=== PATIENT | female | born 1975 | race Caucasian/White ===

== ENCOUNTER 2016-10-10 12:47 | Emergency (ER) | payer BC ==
--- NOTE | 2016-10-10 14:10 | UC ---
Dizzy HPI HPI Summary: PT HAD GASTRIC SLEEVE 11/2015. IS LIMITED TO HOW MUCH FLUID SHE CAN TAKE IN. STARTED TO FEEL DEHYDRATED A COUPLE OF WEEKS AGO BUT TODAY FELT WORSE. STATES SHE "COULD NOT FUNCTION". FELT WEAK, DIZZY AND UNABLE TO FOCUS. HAS HEADACHE. HAD SIMILAR SX A COUPLE OF MONTHS AGO AND FELT BETTER AFTER IVF. - History Of Current Complaint Chief Complaint: UCDizziness Stated Complaint: NEEDS FLUIDS Time Seen by Provider: 10/10/16 13:14 Hx Obtained From: Patient Hx Last Menstrual Period: 10/10/16 Onset/Duration: Gradual Onset, Still Present Timing: Constant Severity Initially: Mild Severity Currently: Moderate Pain Intensity: 0 Pain Scale Used: 0-10 Numeric Character: Weak, Dizzy Aggravating Factor(s): Exertion Associated Signs And Symptoms: Positive: Decreased Oral Intake. Negative: Nausea, Vomiting, SOB, Palpitations, Visual Changes - Allergies/Home Medications Allergies/Adverse Reactions: Allergies Allergy/AdvReac Type Severity Reaction Status Date / Time Iodinated Contrast Media Allergy Intermediate Hives Verified 10/10/16 13:17 [CONTRAST DYE] Sulfa Drugs Allergy Intermediate Hives Verified 10/10/16 13:17 ENVIRONMENTAL/SEASONAL Allergy Hives Uncoded 10/10/16 13:17 HAYFEVER PMH/Surg Hx/FS Hx/Imm Hx Endocrine History Of: Denies: Diabetes Cardiovascular History Of: Reports: Hypertension - PRN TRIAMTERENE/HCTZ Denies: Pacemaker/ICD Respiratory History Of: Reports: Asthma, Bronchitis - AND SINUS INFECTION IN THE LAST MONTH GI/ History Of: Reports: Kidney Stones - HX OF Denies: Renal Disease Comment Only: Gall Bladder Disease - Gall Bladder removed Neurological History Of: Reports: Migraine Denies: CVA Psychological History Of: Reports: Anxiety, Depression - Surgical History Surgical History: Yes Surgery Procedure, Year, and Place: LEFT WRIST PINS{PINS REMOVED} 1997 AND 2013 -. Lt WRIST cyst X's 2 - BONE SPURS REMOVED LAPAROSCOPY 1998. TENDON RELEASE RIGHT WRIST 2000, 2012. GALLBLADDER REMOVED 2001. Tubal ligation. TONSILS 2006. LEFT KNEE ARTHROSCOPIC 2003. 2007. TUBAL LIGATION 2009. 2012 -LEFT SHOULDER LABRAL REPAIR. 2010- LEFT RING FINGER- APONTE LAPAROSCOPY X 2 MOST RECENT YEARS AGO- [place]. CYSTS REMOVED NECK,R WRIST,GROIN. 3 HEMORROID SURGERIES. 03/2014 LEFT WRIST MASS EXC [facility]. 2010 CYST REMOVED FROM RIGHT JAW AREA. 1998-LAPAROSCOPY. 2000-RIGHT TENDONITIS. 2000 HEMORRHOID BANDING. 2000-CAUTERIZATION OF HEMORRGOIDS. 2000-GALLBLADDER. 2003-LEFT KNEE SCOPING. AFTER 2004 3 MORE LAPAROSCOPIES- WITH TUBAL LIGATION. 2007-C- SECTION. 2008-LEFT RING FINGER REPAIR OF FRACTURE. 2007--TONSILLECTOMY. 2007- HEMORRHOID CUT OUT. 2012-LABRUM TEAR LEFT SHOULDER. 2013-LEFT WRIST BONE SPURS. 2013-BRONCHOSCOPY. SURGERY FOR KIDNEY STONE BLASTING - Family History Known Family History: Positive: Cardiac Disease, Hypertension Family History: Father has heart disease and mother has hypertension - Social History Alcohol Use: Rare Substance Use Type: None Smoking Status (MU): Never Smoked Tobacco Type: Cigarettes Amount Used/How Often: 1/2-1 PPD X 21 YEARS Length of Time of Smoking/Using Tobacco: 21 YEARS Have You Smoked in the Last Year: No When Did the Patient Quit Smoking/Using Tobacco: 03/2014 Household Exposure Type: Cigarettes - Immunization History Most Recent Influenza Vaccination: never Most Recent Tetanus Shot: [place] Most Recent Pneumonia Vaccination: never Review of Systems Constitutional: Fatigue Skin: Negative Respiratory: Negative Cardiovascular: Negative Gastrointestinal: Negative Neurological: Headache, Weakness, Other - DIZZY All Other Systems Reviewed And Are Negative: Yes Physical Exam Triage Information Reviewed: Yes Appearance: Well-Appearing, No Pain Distress, Well-Nourished Vital Signs: Initial Vital Signs Temp 98.1 F 10/10/16 13:31 Pulse 65 10/10/16 13:31 Resp 16 10/10/16 13:31 BP 132/84 10/10/16 13:31 Pulse Ox 98 10/10/16 13:31 Vital Signs Reviewed: Yes Eyes: Positive: Conjunctiva Clear ENT: Positive: Hearing grossly normal Neck: Positive: Supple Respiratory Exam: Normal Cardiovascular Exam: Normal Abdomen Description: Positive: Nontender, Soft. Negative: Distended, Guarding Bowel Sounds: Positive: Present Musculoskeletal: Positive: No Edema Neurological: Positive: Fatigued Psychological: Positive: Normal Response To Family, Age Appropriate Behavior Skin: Negative: rashes Dizzy Course/Dx - Course Course Of Treatment: NS ORDERED. PT SIGNED OUT TO DR. WAITE AT SHIFT CHANGE. - Differential Dx/Diagnosis Provider Diagnoses: DIZZY - Physician Notifications Discussed Patient Care With: DR. WAITE Time Discussed With Above Provider: 14:39 - TRANSFER OF CARE - SHIFT CHANGE Discharge - Discharge Plan Condition: Stable Disposition: OTHER Discharge Disposition Comment: TRANSFER OF CARE - SHIFT CHANGE Referrals: Dayo Westbrook MD [Primary Care Provider] - If Needed
[2016-10-10] MEDS ORDERED: NS 0.9% 1000 ML* 1,000 ML IV SCH (14:15)
--- NOTE | 2016-10-10 15:30 | UC ---
Progress - Progress Note Progress Note: The patient came in "for fluids" because she was "dehydrated." She states this diagnosis because she felt like she was going to faint. And the last time she felt this way, she had IV fluids and felt much better. That is why she thought that is all that she needed today and why she came in stating she was here for "fluids." She has had bariatric surgery recently. However, her urine specific gravity was 1.005 and she has been urinating all the time that she is here. When I went in to see her after Dr. Mcintyre left, she stated that she felt a bit better, but not at all as well as she did the first time she had fluids. The patient was told that if she is having near syncopal episodes, that she should probably go to the ER for further evaluation as we don't have the testing here ( other than EKG) that can help figure out why she is having these symptoms. AT the time I had told her that her urine suggested that she was not dehydrated, she said she did not know what to do. So I told her that I will let her think about it for a while and come back see what she wants to do. After the patient had some time to think about this (and call her primary care provider--Dr. Roth), the nurse pulled her IV and got vital signs showing that her initial heart rate of 65 dropped to 48). She was told that we can do an EKG and she agreed to this. The patient had an EKG done which shows that her pulse rate is 41. The patient was told about this and my strong recommendation that she have this slow heart rate and feeling like she is going to faint evaluated in the ER. She is agreeable to go by ambulance. Poornima Harley was told about this patient at 16:10.
[2016-10-10 16:18] VITALS: BP 138/78
[2016-10-10] MEDS ORDERED: D5NS 0.9% 1000 ML BAG* 1,000 ML IV SCH (17:00)
== END 2016-10-10 16:35 ==
LOC: UCEAST 12:47
DX: R42 Dizziness and giddiness (principal); R55 Syncope and collapse; R00.1 Bradycardia, unspecified; Z32.02 Encounter for pregnancy test, result negative; I10 Essential (primary) hypertension; Z91.041 Radiographic dye allergy status; Z90.49 Acquired absence of other specified parts of digestive tract; Z98.84 Bariatric surgery status; Z88.2 Allergy status to sulfonamides; Z87.891 Personal history of nicotine dependence
CPT/HCPCS: 81003; 84702; 93005; 96360; 96361; 99213; G0463

== ENCOUNTER 2016-10-10 16:58 | Emergency (ER) | payer BC ==
[2016-10-10] MEDS ORDERED: NS 0.9% 1000 ML* 1,000 ML IV ONE (18:24)
[2016-10-10 18:44] LABS: Hematocrit 38 % (35-47); Hemoglobin 12.6 g/dl (12.0-16.0); Mean Corpuscular HGB Conc 34 g/dl (31-36); Mean Corpuscular Hemoglobin 29 pg (27-31); Mean Corpuscular Volume 85 fL (80-97); Mean Platelet Volume 8 um3 (7.4-10.4); Red Blood Count 4.43 10^6/ul (4.0-5.4); Red Cell Distribution Width 13 % (10.5-15); White Blood Count 5.4 10^3/ul (3.5-10.8)
[2016-10-10 18:59] LABS: Albumin 4.1 g/dL (3.2-5.2); BUN/Creatinine Ratio 13.2 (8-20); Calcium 8.7 mg/dL (8.6-10.3); EGFR African American 123.9 (>60); EGFR Non-African American 96.3 (>60); Globulin 2.8 g/dL (2-4); Potassium 3.5 mmol/L (3.5-5.0); Total Bilirubin 0.4 mg/dL (0.2-1.0); Total Protein 6.9 g/dL (6.4-8.9)
--- NOTE | 2016-10-10 19:00 | RAD ---
Indication: Syncope. Single frontal view of the chest performed at 1855 hours was reviewed. Comparison is made with previous exam dated April 12, 2014. No mediastinal shift is noted. Heart is of normal size and configuration. Lung ortez appear clear. IMPRESSION: NO ACTIVE CARDIOPULMONARY DISEASE IS NOTED.
[2016-10-10 19:38] LABS: TSH (Thyroid Stimulating Horm) 1.32 mcIU/mL (0.34-5.60)
[2016-10-10 21:32] VITALS: BP 129/83
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
== END 2016-10-10 21:51 | disposition home or self-care (01) ==
LOC: ED 16:58
DX: E86.0 Dehydration (principal); R55 Syncope and collapse; R42 Dizziness and giddiness; R07.9 Chest pain, unspecified
CPT/HCPCS: 36415; 71010; 80053; 83605; 83735; 84443; 84484; 85025; 85379; 85610; 93005; 99282

== ENCOUNTER → 2017-05-01 13:46 | Emergency (ER) | payer BC ==
[~2017-05-01 13:46] MED LIST: HYDROmorphone INJ* 2 MG/ML CARPUJECT SYRINGE IV SLOW PU ONE; Ketorolac INJ* 30 MG/ML 1 ML VIAL IV PUSH ONE; Morphine INJ* 4 MG/ML 1 ML CARPUJECT IV ONE; NS 0.9% 1000 ML* 1,000 ML IV ONE
[2017-05-01 15:24] LABS: Urine Bilirubin Negative (Negative); Urine Glucose Negative (Negative); Urine Nitrite Negative (Negative)
[2017-05-01 15:38] LABS: Hematocrit 36 % (35-47); Hemoglobin 12.3 g/dl (12.0-16.0); Mean Corpuscular HGB Conc 34 g/dl (31-36); Mean Corpuscular Hemoglobin 29 pg (27-31); Mean Corpuscular Volume 85 fL (80-97); Mean Platelet Volume 7 um3 (7.4-10.4); Red Blood Count 4.23 10^6/ul (4.0-5.4); Red Cell Distribution Width 13 % (10.5-15); White Blood Count 6.3 10^3/ul (3.5-10.8)
--- NOTE | 2017-05-01 15:59 | RAD ---
CLINICAL HISTORY: Right flank pain COMPARISON: April 20, 2011 TECHNIQUE: Multiple contiguous axial CT scans were obtained of the abdomen and pelvis, without intravenous contrast enhancement. Coronal and sagittal multiplanar reformations are submitted for review. Oral contrast was not administered. FINDINGS: The study is limited by the lack of intravenous contrast. This limits evaluation of the solid organs and vasculature. LUNG BASES: The lung bases are clear. LIVER: The liver is normal in shape, size, contour, and attenuation. BILE DUCTS: There is no intrahepatic or extrahepatic biliary dilatation. GALLBLADDER: The gallbladder is not visualized. Surgical clips are noted in the gallbladder fossa. PANCREAS: The pancreas is normal, without mass or ductal dilatation. SPLEEN: Normal in size and appearance. UPPER GI TRACT: Evaluation of the gastrointestinal tract is limited by incomplete gastric distention. There is post surgical change to the upper GI tract. SMALL BOWEL AND MESENTERY: The small bowel is normal in contour, course, and caliber. There is no obstruction or dilatation. COLON: The colon is normal in contour, course, caliber. There is no pericolonic inflammatory change. The appendix is not clearly visualized. There is no inflammatory change of the right lower quadrant. ADRENALS: Normal bilaterally. KIDNEYS: The kidneys are normal in shape, size, contour, and axis. There is no hydronephrosis or nephrolithiasis. BLADDER: The bladder is incompletely distended but is grossly normal. PELVIC ORGANS: The uterus is somewhat lobulated suggestive of fibroids. The patient is status post tubal ligation. A tampon is noted. AORTA: The aorta is normal. IVC: Unremarkable LYMPH NODES: There is no lymphadenopathy by size criteria. ABDOMINAL WALL: There is no evidence for abdominal wall hernia. BONES AND SOFT TISSUES: Mild degenerative changes are noted. OTHER: None IMPRESSION: NO HYDRONEPHROSIS OR NEPHROLITHIASIS. NO ACUTE CT PATHOLOGY OF THE VISUALIZED ABDOMEN OR PELVIS.
[2017-05-01 16:05] LABS: ALT 10 U/L (7-52); AST 16 U/L (13-39); Albumin 4.1 g/dL (3.2-5.2); Alkaline Phosphatase 60 U/L (34-104); Anion Gap 7 mmol/L (2-11); BUN/Creatinine Ratio 18.8 (8-20); Blood Urea Nitrogen 13 mg/dL (6-24); CO2 Carbon Dioxide 26 mmol/L (22-32); Calcium 9.3 mg/dL (8.6-10.3); Chloride 103 mmol/L (101-111); EGFR African American 121.2 (>60); EGFR Non-African American 94.2 (>60); Globulin 2.8 g/dL (2-4); Glucose 83 mg/dL (70-100); Lipase 32 U/L (11.0-82.0); Potassium 3.9 mmol/L (3.5-5.0); Sodium 136 mmol/L (133-145); Total Protein 6.9 g/dL (6.4-8.9)
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
[2017-05-01 17:56] VITALS: BP 127/83
== END | disposition home or self-care (01) ==
LOC: ED 13:46
DX: R10.31 Right lower quadrant pain (principal); Z87.891 Personal history of nicotine dependence; I10 Essential (primary) hypertension; J45.909 Unspecified asthma, uncomplicated; Z87.442 Personal history of urinary calculi
CPT/HCPCS: 36415; 74176; 80053; 81003; 83690; 84702; 85025; 85610; 85730; 96360; 99282; J1170; J1885; J2270

== ENCOUNTER 2017-06-16 22:29 | Emergency (ER) | payer BC ==
[2017-06-16] MEDS ORDERED: NS 0.9% 1000 ML* 1,000 ML IV SCH (23:45)
[2017-06-16] MEDS ORDERED: Ketorolac INJ* 30 MG/ML 1 ML VIAL IV PUSH ONE (23:50)
[2017-06-17 00:34] LABS: Hematocrit 37 % (35-47); Hemoglobin 12.7 g/dl (12.0-16.0); Mean Corpuscular HGB Conc 35 g/dl (31-36); Mean Corpuscular Hemoglobin 30 pg (27-31); Mean Corpuscular Volume 85 fL (80-97); Mean Platelet Volume 7 um3 (7.4-10.4); Red Blood Count 4.28 10^6/ul (4.0-5.4); Red Cell Distribution Width 13 % (10.5-15); White Blood Count 7.5 10^3/ul (3.5-10.8)
[2017-06-17 00:41] LABS: Urine Bacteria Absent (Absent); Urine Bilirubin Negative (Negative); Urine Glucose Negative (Negative); Urine Nitrite Negative (Negative)
[2017-06-17 00:47] LABS: ALT 10 U/L (7-52); AST 16 U/L (13-39); Albumin 4.4 g/dL (3.2-5.2); Alkaline Phosphatase 61 U/L (34-104); Anion Gap 6 mmol/L (2-11); BUN/Creatinine Ratio 20.3 (8-20); Blood Urea Nitrogen 15 mg/dL (6-24); CO2 Carbon Dioxide 26 mmol/L (22-32); Calcium 9.3 mg/dL (8.6-10.3); Chloride 105 mmol/L (101-111); EGFR African American 111.8 (>60); EGFR Non-African American 86.9 (>60); Globulin 2.9 g/dL (2-4); Glucose 86 mg/dL (70-100); Lipase 43 U/L (11.0-82.0); Potassium 3.6 mmol/L (3.5-5.0); Sodium 137 mmol/L (133-145); Total Protein 7.3 g/dL (6.4-8.9)
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
[2017-06-17 03:13] VITALS: BP 99/58
--- NOTE | 2017-06-17 07:59 | RAD ---
CLINICAL HISTORY: Right flank tenderness, renal colic COMPARISON: May 01, 2017 TECHNIQUE: Multiple contiguous axial CT scans were obtained of the abdomen and pelvis, without intravenous contrast enhancement. Coronal and sagittal multiplanar reformations are submitted for review. Oral contrast was not administered. FINDINGS: The study is limited by the lack of intravenous contrast. This limits evaluation of the solid organs and vasculature. LUNG BASES: The lung bases are clear. LIVER: The liver is normal in shape, size, contour, and attenuation. BILE DUCTS: There is no intrahepatic or extrahepatic biliary dilatation. GALLBLADDER: The gallbladder is not visualized. Surgical clips are noted in the gallbladder fossa. PANCREAS: The pancreas is normal, without mass or ductal dilatation. SPLEEN: Normal in size and appearance. UPPER GI TRACT: Evaluation of the gastrointestinal tract is limited by incomplete gastric distention. There is post surgical change to the projected tract. SMALL BOWEL AND MESENTERY: The small bowel is normal in contour, course, and caliber. There is no obstruction or dilatation. COLON: The colon is normal in contour, course, caliber. There is no pericolonic inflammatory change. ADRENALS: Normal bilaterally. KIDNEYS: The kidneys are normal in shape, size, contour, and axis. There is no hydronephrosis or nephrolithiasis. BLADDER: The bladder is smooth in contour. PELVIC ORGANS: The uterus and adnexa are grossly normal for technique. The patient is status post tubal ligation. AORTA: The aorta is normal. IVC: Unremarkable LYMPH NODES: There is no lymphadenopathy by size criteria. ABDOMINAL WALL: There is no evidence for abdominal wall hernia. BONES AND SOFT TISSUES: There are minimal degenerative changes. OTHER: None IMPRESSION: NO HYDRONEPHROSIS OR NEPHROLITHIASIS.
== END 2017-06-17 03:11 | disposition home or self-care (01) ==
LOC: ED 22:29
DX: R10.31 Right lower quadrant pain (principal); R11.10 Vomiting, unspecified; N80.9 Endometriosis, unspecified; Z32.02 Encounter for pregnancy test, result negative; I10 Essential (primary) hypertension; J45.909 Unspecified asthma, uncomplicated; K21.9 Gastro-esophageal reflux disease without esophagitis; Z87.442 Personal history of urinary calculi; G43.909 Migraine, unspecified, not intractable, without status migrainosus; F41.9 Anxiety disorder, unspecified; F32.9 Major depressive disorder, single episode, unspecified; Z90.49 Acquired absence of other specified parts of digestive tract; Z88.2 Allergy status to sulfonamides; Z91.041 Radiographic dye allergy status; Z87.891 Personal history of nicotine dependence
CPT/HCPCS: 36415; 74176; 80053; 81003; 81015; 83605; 83690; 84702; 85025; 85610; 85730; 96361; 96374; 99282; J1885

== ENCOUNTER 2017-08-01 11:37 | Emergency (ER) | payer BC ==
--- OUTSIDE RECORDS SUMMARY | 2017-08-01 11:43 | XMS REPORT ---
:1975 External Reference #:[id number] Author Organization [facility] Address [address] [place] [address] Phone [phone] Care Team Providers Name Role Phone Dayo Westbrook M.D. Primary Care Physician Unavailable Payers Type Date Identification Numbers Payment Provider Subscriber Commercial Effective: Policy Number: [employer] CHERELLE/GUERA Tabatha Acosta 2006 [id number] [facility] PayID: [id number] [address] [address] [place] [address] Problems Description No Information Family History Date Family Member(s) Problem(s) Comments Father Hypertension Mother Colitis Mother Osteoarthritis Mother Hypertension First Daughter A&W Second Daughter A&W Paternal Grandfather due to Unknown Causes () Paternal Grandmother due to Unknown Causes () Maternal Grandfather due to Unknown Causes () Maternal Grandmother Skin Cancer Maternal Grandmother Stroke Social History Type Date Description Comments Education Highest level completed, 12th grade Marital Status Lives With Lives With Daughters Diet Healthy, Well Balanced 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 Cigarette Use Former Cigarette Smoker ETOH Use Occasionally consumes alcohol Recreational Drug Use Denies Drug Use Smoking Patient is a former smoker Daily Caffeine Consumes on average 2 cups of coffee per day Daily Caffeine Consumes on average 2 cups of tea per day Exercise Type/Frequency Exercises sporadically Seat Belt/Car Seat Always uses seat belt Currently Active Patient is currently sexually active Contraceptive Methods Current methods include tubal ligation Contraceptive Methods Current methods include vasectomy STD's No STD History Allergies, Adverse Reactions, Alerts Date Description Reaction Status Severity Comments 11/07/2015 Sulfa Antibiotics active 11/07/2015 Contrast Dye active Medications Medication Date Status Form Strength Qnty SIG Indications Ordering Provider Norethindrone 06/09 Active Tablets 5mg 30tab take 1 tab by Phaelon Acetate s mouth every MD Jayshree day while taking lupron Lupron Depot 05/08 Active Kit 3.75mg 1unit inject 3.75mg Phaelon (1-Month) /2016 s intramuscular MD Jayshree once per month for three months Dulera 12/13 Active Aerosol 200-5mcg/ 1 puff twice Miguelina Act a day prn Dlaila Xyzal 12/13 Active Tablets 5mg 90tab 1 by mouth Miguelina, s every day Dalila Nasonex 12/13 Active Suspension 50mcg/Act 3unit 2 sprays in s each nostril Dalila daily Sertraline HCL 12/11 Active Tablets 25mg 270ta Take 3 bs Tablets Once Dayo, Daily Along M.D. With A 100 MG Tablet Ventolin HFA Active Aerosol 108(90Bas 1unit 2 puffs every Unknown /0000 e) s 4 hours as mcg/Act needed Sertraline HCL Active Tablets 100mg 90tab Take 1 Tablet Dar, s Once Daily Dayo, Along With 3 M.D. 25 MG Tablets Vitamin D3 Active Capsules 21631Amqp 8caps 1 by mouth Unknown /0000 every week x 8 weeks Metoprolol Active Unknown Succinate / Doxycycline 05/08 Hx Capsules 100mg 28cap take one tab Phaelon Hyclate s by mouth MD Jayshree - twice a day x 06/10 14 Dyazide 09/15 Hx Capsules 37.5-25mg 30cap 1 by mouth V41.1 Dar, s every day Dayo, - M.D. 05/06 Medications Administered in Office Medication Date Status Form Strength Qnty SIG Indications Ordering Provider PT SCRN Tbco Administered Injection Phaelon Id as Non User 018 MD Jayshree Vital Signs Date Vital Result Comment 07/29/2017 BP Systolic 118 mmHg BP Diastolic 78 mmHg Height 66.5 inches 5'6.50" Weight 222.00 lb BMI (Body Mass Index) 35.3 kg/m2 Last Menstrual Period 9399810 2 Parity 2 06/17/2017 BP Systolic 106 mmHg BP Diastolic 72 mmHg Height 66.5 inches 5'6.50" Weight 221.00 lb BMI (Body Mass Index) 35.1 kg/m2 Last Menstrual Period 0850869 2 Parity 2 05/08/2017 BP Systolic 116 mmHg BP Diastolic 72 mmHg Height 66.5 inches 5'6.50" Weight 218.00 lb BMI (Body Mass Index) 34.7 kg/m2 Last Menstrual Period 9730510 2 Parity 2 05/06/2017 BP Systolic 130 mmHg BP Diastolic 80 mmHg Height 66.5 inches 5'6.50" Weight 218.00 lb BMI (Body Mass Index) 34.7 kg/m2 Last Menstrual Period 9168280 2 Parity 2 11/07/2015 BP Systolic 134 mmHg BP Diastolic 66 mmHg Height 66.5 inches 5'6.50" Weight 251.00 lb BMI (Body Mass Index) 39.9 kg/m2 Last Menstrual Period 9222606 2 Parity 2 09/27/2015 BP Systolic 130 mmHg BP Diastolic 80 mmHg Body Temperature 97.6 F Heart Rate 62 /min Respiratory Rate 20 /min Height 66 inches Weight 254.00 lb BMI (Body Mass Index) 41.0 kg/m2 09/13/2015 BP Systolic 120 mmHg BP Diastolic 68 mmHg Body Temperature 98.6 F Heart Rate 76 /min Respiratory Rate 16 /min Height 66 inches Weight 256.00 lb BMI (Body Mass Index) 41.3 kg/m2 Results Test Date Test Result H/L Range Note Laboratory test 06/17/2017 Cytology SEE RESULT BELOW 1 finding Laboratory test 11/07/2015 Cytology SEE RESULT BELOW 2 finding GC/Chlamydia Dna 11/07/2015 Chlamydia Negative Negative Probe trachomatis Rna Neisseria gonorrhoeae (GC) Rna Negative Negative Laboratory test finding 11/07/2015 Human Papilloma Virus Rna Negative Negative 3 Laboratory test finding 05/14/2015 Hematocrit 41 % 35-47 Hemoglobin 14.1 g/dL 12.0-16.0 Mean Corpuscular HGB Conc 35 g/dL 31-36 Mean Corpuscular Hemoglobin 31 pg 27-31 Mean Corpuscular Volume 88 fL 80-97 Mean Platelet Volume 7 um3 Low 7.4-10.4 Monospot Negative Negative Platelet Count 292 10^3/uL 150-450 Red Blood Count 4.64 10^6/uL 4.0-5.4 Red Cell Distribution Width 13 % 10.5-15 White Blood Count 8.8 10^3/uL 4.8-10.8 Laboratory test finding 12/28/2014 Inr/Protime 2.16 High 0.78-1.07 Factor II (Prothrombin) 12/28/2014 Prothrombin 12760 Negative Negative 4 Genoty Mutation Prothrombin A76325t Interp See Comment 5 Prothrombin Mutation Review By Cherrie Dupont <See Note> Laboratory test finding 12/24/2014 Inr (Fma) 1.8 Low 2.0-3.0 Laboratory test finding 12/13/2014 Hematocrit (Fma/CMC/CTX) 40.1 % 36.1 - 50.3 Hemoglobin (Fma/CMC/CTX) 13.9 g/dL 12.1 - 17.2 Inr (Fma) 0.9 0.9-1.1 Lymph% 29.9 % 17.0-48.0 Mean Corpuscular Hemo Concen 34.7 32.0-36.0 Mean Corpuscular Hemoglobin 30.5 27.6-33.3 Mean Corpuscular Vol 88 82.2-97.4 Mean Platelet Volume 6.0 5.5-11.0 Mixed% 4.0 Neutrophils % 66.1 Platelets 311 10^3/ul 150-400 RBC 4.57 3.90-5.70 RDW 13.1 11.6-13.7 WBC 6.0 3.6-9.6 1 SEE RESULT BELOW Name: TABATHA ACOSTA : [address]: Nura Martell MD Acct: [id number] Unit: [id number] AGE: 42 Location: [facility] Re06/17/17 SEX: F Status: REG REF SPEC: [id number] MIGUEL: 06/17/17-1556 [facility] DR: Nura Martell MD REQ: [id number] RECD: 06/18/17 STATUS: SOUT _ ORDERED: TP IMAGE ANAL, HPV/Thin Prep COMMENTS: [id number] Negative for Intraepithelial lesion or Malignancy A. Ectocervical/Endocervical Specimen Adequacy: Satisfactory of evaluation Transformation zone component identified Patient Information: HPV: High risk HPV RNA testing regardless of pap results. Actual Specimen Date: 06/17/17 Last Menstrual Date: 05/31/17 Date of Last Specimen: 11/07/15 Date Time Test Result Flag (u) Normal Range 06/17/17 9199 @ HPV RNA Negative Negative @ @ The high-risk HPV types detected by the assay include: 16, @ 18, 31, 33, 35, 39, 45, 51, 52, 56, 58, 59, 66, and 68. Signed (signature on file) MARCIANO Ball(ASCP) 06/19 4050 This Pap test was evaluated with the assistance of the At[employer] SystemsPrep Test Imaging System. Due to cytologic findings at the supervisor electronics processing microscope, comprehensive manual rescreening by a Closing Specialist may be required. The Pap Smear is a screening test designed to aid in the detection of premalignant and malignant conditions of the uterine cervix. It is not a diagnostic procedure and should not be used as the sole means of detecting cervical cancer. Both false- positive and false- negative reports do occur. Depending on your risk status, a Pap smear should be obtained and evaluated every 1-3 years. END OF REPORT * ML=Testing performed at [facility] DEPARTMENT OF PATHOLOGY, [address] [place] [address] Hector Correa M.D. Director [facility] # [id number] 2 SEE RESULT BELOW Name: TABATHA ACOSTA : [address]: Myrna Gore MD Acct: [id number] Unit: [id number] AGE: 40 Location: [facility] Re11/07/15 SEX: F Status: REG REF SPEC: [id number] MIGUEL: 11/07/15-1433 [facility] DR: Myrna Gore MD REQ: [id number] RECD: 11/07/15 STATUS: SOUT _ ORDERED: IMAGE ANALYSIS, HPV/Thin Prep COMMENTS: [id number] FINAL DIAGNOSIS Negative for Intraepithelial lesion or Malignancy A. Ectocervical/Endocervical Specimen Adequacy: Satisfactory of evaluation Transformation zone component identified Patient Information: HPV: High risk HPV RNA testing regardless of pap results. Actual Specimen Date: 11/07/15 Last Menstrual Date: 10/10/15 Spec Date if unknown: elsewhere Date Time Test Result Flag (u) Normal Range 11/07/15 1433 HPV RNA Negative Negative The high-risk HPV types detected by the assay include: 16, 18, 31, 33, 35, 39, 45, 51, 52, 56, 58, 59, 66, and 68. Signed (signature on file) MARCIANO Potter (ASCP) 11/07 1979 This Pap test was evaluated with the assistance of the ThinPrep Test Imaging System. Due to cytologic findings at the supervisor electronics processing microscope, comprehensive manual rescreening by a Closing Specialist may be required. The Pap Smear is a screening test designed to aid in the detection of premalignant and malignant conditions of the uterine cervix. It is not a diagnostic procedure and should not be used as the sole means of detecting cervical cancer. Both false- positive and false- negative reports do occur. Depending on your risk status, a Pap smear should be obtained and evaluated every 1-3 years. END OF REPORT * ML=Testing performed at [facility] DEPARTMENT OF PATHOLOGY, [address] [place] [address] Hector Correa M.D. Director [facility] # [id number] 3 The high-risk HPV types detected by the assay include: 16, 18, 31, 33, 35, 39, 45, 51, 52, 56, 58, 59, 66, and 68. 4 This individual DOES NOT have the Prothrombin U07790P mutation. Although the Prothrombin K04525P mutation is absent, the individual may have other genetic and environmental risk factors for thrombosis. If clinically indicated, suggest Coagulation Consultation 52930 (Thrombophilia Profile) to complete the evaluation for an inherited or acquired thrombosing disorder (i.e., thrombophilia). Consider genetic consultation and counseling of potentially affected family members regarding laboratory testing. ADDITIONAL INFORMATION This test is a direct mutation analysis using PCR amplification, signal generation and release by cleavage of sequence specific alleles ([employer], [employer], [place], [place]). 5 Ivan Collazo M.D. Test Performed by: [address] [address] Contour Grinder: Jayy G. Morice, II, M.D., Ph.D. Procedures Date CPT Code Description Status 07/12/2017 30507 Injection Intramuscular Or Subcutaneous Completed 06/07/2017 98045 Injection Intramuscular Or Subcutaneous Completed 05/07/2017 28143 Echography Transvaginal Completed 11/07/2015 19930 Echography Transvaginal Completed 07/01/2012 Mammogram Completed 07/01/2009 Colonoscopy Completed 04/13/2008 45912 Delivery Only Completed Encounters Type Date Location Provider CPT E/M Dx Office Visit 07/29/2017 3:00p [place] [address] I95.0 R10.30 Office Visit 06/17/2017 3:00p [place] [address] Z01.419 N80.9 Office Visit 05/08/2017 3:00p [place] [address] N92.0 Office Visit 05/06/2017 3:00p [facility] [place] DoC 81895 R10.30 Office Visit 11/07/2015 1:30p [place] [address] N92.0 Plan of Care 05/06/2017 - FIGUEROA Do-CR10.30 Lower abdominal pain, unspecifiedFollow up :r/v u/s and visit, first available apt.
--- NOTE | 2017-08-01 15:14 | UC ---
Catalino Bolanos Nilda, scribed for Timmy Camargo MD on 08/01/17 at 1404 . Respiratory Complaint HPI - HPI Summary HPI Summary: This patient is a 42 year old F presenting to [facility] with a chief complaint of constant URI symptoms since last night. The patient rates the pain 6/10 in severity. Symptoms aggravated and alleviated by nothing. Patient reports fever, cough, fatigue, sore throat secondary to coughing, weakness, neck and shoulder soreness, and weakness. Pt states her lungs feel like their filling up, but its becoming more difficult to take deep breaths. Patient denies rhinorrhea. Pt states symptoms are similar to previous episode of flu. She notes recent sick contact. Pt states she had similar symptoms and was hospitalized for 6 days in 2013 without Dx. - History of Current Complaint Chief Complaint: UCGeneralIllness Stated Complaint: URI Time Seen by Provider: 08/01/17 13:55 Hx Obtained From: Patient Hx Last Menstrual Period: early may Onset/Duration: Sudden Onset, Lasting Days, Still Present Timing: Constant Severity Currently: Moderate Pain Intensity: 6 Pain Scale Used: 0-10 Numeric Character: Cough: Nonproductive Aggravating Factors: Nothing Alleviating Factors: Nothing Associated Signs And Symptoms: Positive: Dyspnea, Fever - Allergies/Home Medications Allergies/Adverse Reactions: Allergies Allergy/AdvReac Type Severity Reaction Status Date / Time MS Iodinated Contrast Media Allergy Intermediate Hives Verified 08/01/17 13:55 [CONTRAST DYE] MS Sulfa Drugs [Sulfa Drugs] Allergy Intermediate Hives Verified 08/01/17 13:55 ENVIRONMENTAL/SEASONAL Allergy Hives Uncoded 08/01/17 13:55 HAYFEVER Home Medications: Home Medications Cholecalciferol [Vitamin D] 1,000 units PO DAILY 08/01/17 [History Confirmed 07/18] Cyanocobalamin [B12] 08/01/17 [History] Leuprolide Acetate (Cpp) [Lupron Depot-Ped (1-Month] 08/01/17 [History] PMH/Surg Hx/FS Hx/Imm Hx - Surgical History Surgical History: Yes Surgery Procedure, Year, and Place: LEFT WRIST PINS{PINS REMOVED} 1997 AND 2013 -. Lt WRIST cyst X's 2 - BONE SPURS REMOVED LAPAROSCOPY 1998. TENDON RELEASE RIGHT WRIST 2000, 2012. GALLBLADDER REMOVED 2001. Tubal ligation. TONSILS 2007. LEFT KNEE ARTHROSCOPIC 2003. 2007. TUBAL LIGATION 2009. 2013 -LEFT SHOULDER LABRAL REPAIR. 2010- LEFT RING FINGER- APONTE LAPAROSCOPY X 2 MOST RECENT YEARS AGO- [facility]. CYSTS REMOVED NECK,R WRIST,GROIN. 3 HEMORROID SURGERIES. 03/2014 LEFT WRIST MASS EXC [facility]. 2010 CYST REMOVED FROM RIGHT JAW AREA. 1998-LAPAROSCOPY. 2000-RIGHT TENDONITIS. 2000 HEMORRHOID BANDING. 2000-CAUTERIZATION OF HEMORRGOIDS. 2000-GALLBLADDER. 2003-LEFT KNEE SCOPING. AFTER 2004 3 MORE LAPAROSCOPIES- WITH TUBAL LIGATION. 2007-C- SECTION. 2008-LEFT RING FINGER REPAIR OF FRACTURE. 2007--TONSILLECTOMY. 2007- HEMORRHOID CUT OUT. 2012-LABRUM TEAR LEFT SHOULDER. 2013-LEFT WRIST BONE SPURS. 2013-BRONCHOSCOPY. SURGERY FOR KIDNEY STONE BLASTING - Family History Known Family History: Positive: Cardiac Disease, Hypertension Family History: Father has heart disease and mother has hypertension - Social History Alcohol Use: Rare Substance Use Type: None Smoking Status (MU): Never Smoked Tobacco Type: Cigarettes Amount Used/How Often: 1/2-1 PPD X 21 YEARS Length of Time of Smoking/Using Tobacco: 21 YEARS Have You Smoked in the Last Year: No When Did the Patient Quit Smoking/Using Tobacco: quit 2013 Household Exposure Type: Cigarettes - Immunization History Most Recent Influenza Vaccination: never Most Recent Tetanus Shot: [place] Most Recent Pneumonia Vaccination: never Review of Systems Constitutional: Fever, Fatigue ENT: Sore Throat - secondary to coughing Respiratory: Shortness Of Breath, Cough Musculoskeletal: Other: - neck pain, shoulder pain Neurological: Weakness All Other Systems Reviewed And Are Negative: Yes Physical Exam Triage Information Reviewed: Yes Vital Signs: Initial Vital Signs Temp 98.9 F 08/01/17 13:49 Pulse 69 08/01/17 13:49 Resp 20 08/01/17 13:49 BP 132/77 08/01/17 13:49 Pulse Ox 99 08/01/17 13:49 Vital Signs Reviewed: Yes - Additional Comments Vital signs: Reviewed Gen.: Patient is a well developed and nourished female in no acute distress. Patient is sitting comfortably on the stretcher. Head: Normacephalic and atraumatic Eyes: PERRLA, EOMI x2. Ears: Right ear canal and TM WNL and Left ear canal and TM WNL Nose and mouth: Nose with dry mucosa and clear discharge, no pharyngeal erythema with no exudate. Neck: Supple, Positive bilateral submandibular and anterior cervical lymphadenopathy. No JVD Lungs: CTA B/L CVS: S1 & S2 present. No murmurs appreciated. ABDOMEN: Soft NT w/ positive BS. EXT: FROM x 4 NEURO: A+O X 3. Diagnostic Evaluation - Laboratory O2 Sat by Pulse Oximetry: 99 Respiratory Course/Dx - Course Course Of Treatment: This patient is a 42 year old F presenting to [facility] with a chief complaint of constant URI symptoms since last night. The patient rates the pain 6/10 in severity. Symptoms aggravated and alleviated by nothing. Patient reports fever, cough, fatigue, sore throat secondary to coughing, weakness, neck and shoulder soreness, and weakness. Pt states her lungs feel like their filling up, but its becoming more difficult to take deep breaths. Patient denies rhinorrhea. Pt states symptoms are similar to previous episode of flu. She notes recent sick contact. Pt states she had similar symptoms and was hospitalized for 6 days in 2013 without Dx. Flue is negative. Possible a common cold is causing the symptoms. Lungs: CTA b/l thus I have no suspicion ofr pneumonia. Although, if symptoms persist she was advised to return to the or go to the ED for futher assestment. I discussed all the findings and test results with the patient. Pt was instructed to return to the urgent care or go to ER immediately if any of the symptoms return or worsens. Plan of care was discussed with the patient and pt understands and agrees. All questions were answered to patient satisfaction. There were no further complaints or concerns. - Differential Dx/Diagnosis Differential Diagnosis/HQI/PQRI: Bronchitis, Influenza, Laryngitis, Sinusitis Provider Diagnoses: URI Discharge - Discharge Plan Condition: Stable Disposition: HOME Patient Education Materials: Upper Respiratory Infection (DC) Referrals: Dayo Westbrook MD [Primary Care Provider] - Additional Instructions: Increase your fluid intake Return to the if symptoms worsen The documentation as recorded by the Catalino castro Nilda accurately reflects the service I personally performed and the decisions made by , Timmy Camargo MD.
[2017-08-01 15:22] VITALS: BP 0/0
== END 2017-08-01 15:22 | disposition home or self-care (01) ==
LOC: UCEAST 11:37
DX: J06.9 Acute upper respiratory infection, unspecified (principal); Z90.49 Acquired absence of other specified parts of digestive tract; Z87.442 Personal history of urinary calculi; Z88.2 Allergy status to sulfonamides; Z91.041 Radiographic dye allergy status; Z87.891 Personal history of nicotine dependence
CPT/HCPCS: 87502; 99212; G0463

== ENCOUNTER 2017-12-19 09:53 | Day surgery (SDC) | payer BC ==
[~2017-12-19 09:53] MED LIST changes: +Buffered Lidocaine 0.9% SYRIN* 5 ML/SYR SYRINGE INTRADERM ONE; +Dexamethasone IV* 4 MG/ML 1 ML (4 MG) IV SLOW PU ONE; +Dexamethasone IV* 4 MG/ML 1 ML (4 MG) ONE; +Famotidine IV* 10 MG/ML 2 ML (20 mg) IV ONE; +Famotidine IV* 10 MG/ML 2 ML (20 mg) ONE; -HYDROmorphone INJ* 2 MG/ML CARPUJECT SYRINGE IV SLOW PU ONE; -Ketorolac INJ* 30 MG/ML 1 ML VIAL IV PUSH ONE; -Morphine INJ* 4 MG/ML 1 ML CARPUJECT IV ONE; -NS 0.9% 1000 ML* 1,000 ML IV ONE
[2017-12-19] MEDS ORDERED: ceFAZolin 2 GM PREMIX (*) 2 GM/50 ML BAG IVPB ONE (10:31)
[2017-12-19] MEDS ORDERED: fentaNYL* 50 MCG/ML 2 ML VIAL (100 MCG VIAL) ONE ×2 (11:46→14:09)
[2017-12-19] MEDS ORDERED: Midazolam* 1 MG/ML 5 ML VIAL (5 MG) ONE (11:46)
[2017-12-19] MEDS ORDERED: Ondansetron INJ* 2 MG/ML VIAL IV PRN (11:52)
[2017-12-19] MEDS ORDERED: oxyCODONE/Acetamin 5/325 MG* TAB PO PRN (11:52)
[2017-12-19] MEDS ORDERED: HYDROcodone/ACETAMIN 5-325 MG* 1 TAB PO PRN (11:52)
[2017-12-19] MEDS ORDERED: Naloxone* 0.4 MG/ML 1 ML VIAL IV PRN (11:52)
[2017-12-19] MEDS ORDERED: Ketorolac INJ* 30 MG/ML 1 ML VIAL IV PRN (11:52)
[2017-12-19] MEDS ORDERED: Bupivacaine 0.5% SDV PF* 30ML VIAL ONE (12:19)
[2017-12-19] MEDS ORDERED: Propofol* 10 MG/ML 20 ML BTL IV PUSH ONE (12:21)
[2017-12-19] MEDS ORDERED: Lidocaine 2% MPF* 2 ML VIAL ONE (12:21)
[2017-12-19] MEDS ORDERED: DiMENhydriNATE IV* 50 MG/ML VIAL ONE (13:02)
[2017-12-19] MEDS ORDERED: hydrALAZINE IV* 20 MG/ML VIAL ONE (13:11)
[2017-12-19] MEDS ORDERED: Ketorolac INJ* 30 MG/ML 1 ML VIAL ONE (13:59)
[2017-12-19] MEDS: fentaNYL* 50 MCG/ML 2 ML VIAL (100 MCG VIAL) IV PRN ×2 (14:10→14:24)
[2017-12-19] MEDS ORDERED: HYDROcodone/ACETAMIN 5-325 MG* 1 TAB ONE (14:44)
[2017-12-19 14:59] VITALS: BP 153/73
--- NOTE | 2017-12-20 09:42 | OP ---
DATE OF OPERATION: 12/19/17 [facility] DATE OF : 79 SURGEON: Dr. Sidney Woods. REGIONAL MANAGER: MANDO Adames ANESTHESIOLOGIST: Dr. Gotti. ANESTHESIA: General. PRE-OP DIAGNOSES: 1. Left dorsal wrist mass. 2. 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 3. Left dorsal carpal boss. POST-OP DIAGNOSES: 1. Left dorsal wrist mass. 2. 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 3. Left dorsal carpal boss. OPERATIVE PROCEDURE: 1. Left dorsal wrist/hand mass excision. 2. Release of left extensor carpi radialis brevis tendon. 3. Left dorsal carpal boss excision. INDICATIONS: Tabatha has had chronic pain all centered around the area of the second and third CMC joints and radiating up in line with the ECRB tendon; it has been going on for years. She has actually had, I believe, three surgeries in the area. Her recent MRI showed a mass between the bases of the second and third metacarpals, also insertional tendinitis and tendinopathy at the insertion of the extensor carpi radialis brevis tendon right in the area of her pain. There is also a dorsal carpal boss at the insertion site as well. I talked to her about her options. Her prior incisions have all been very small. I told that we need a larger incision to adequately visualize everything and perform the surgery. We talked about risks and benefits. She wanted to proceed with the operation. She understands there is a risk of injury to the dorsal sensory nerves on the hand, the risk of stiffness, the risk of persistent pain despite doing the surgery, and the risk of mass recurrence. Certainly, there are other risks associated with this. ESTIMATED BLOOD LOSS: 2 mL. COMPLICATIONS: None. FINDINGS: See above and below. DESCRIPTION OF PROCEDURE: Tabatha was seen in the the preoperative holding area. The correct site, side, and procedure were identified. We came back to the operating room and the arm was prepped and draped in the usual fashion. A time- out was performed. I began by exsanguinating the arm with the Esmarch and the tourniquet was inflated to 250 mmHg. I extended her prior transverse incision proximally and distally in the longitudinal fashion. This created an S-shaped incision. Full thickness flaps were raised off of the paratenon and every effort possible was made to preserve any dorsal sensory traversing nerves. There was quite a bit of dense scar tissue where she had had the prior transverse incisions and so it was a little difficult in that area. Once full thickness flaps were raised off the paratenon, I could see the insertion of the ECRB and there was a lot of tendinopathy in the area, it was very degenerative. Just adjacent to that between the second and third metacarpal bases, there was a mass, it was solid and about 1 cm in length. I went ahead and took my [place] blade and ellipsed out the mass and performed a marginal excision. This was handed off as a specimen. After I had excised the mass, I went ahead and inspected the ECRB tendon. Ultimately, it looked like there was only a few fibers of tendon really attaching and the rest was just degenerative scar tissue appearing tissues. I went ahead and just released the tendon off of its insertion as that is right where she was point tender preoperatively. Once it was released, there was a large dorsal boss there. I went ahead and took the rongeur and excised and rongeured this back to a very normal and smooth dorsal metacarpal base. Once I had excised the dorsal boss, I went ahead and released the extensor retinaculum and I transposed the EPL tendon. I was concerned that there was some roughening around of the edge of the Odalis's tubercle and I did not want there to be an issue, so I just went ahead and transposed the tendon. The retinaculum was then closed with 4-0 Ethibond [id number] sutures. With the retinaculum fully closed up and everything looking good, we irrigated out the wound. The skin was closed with a 4-0 Monocryl suture and Steri- Strips. The wound was infiltrated with 0.25% plain Marcaine. The wound was dressed with 4x4, sterile Webril, and a cock-up wrist splint was applied. She was woken up and taken to recovery room in stable condition. [id number]/[facility] #: [id number] [facility]OSPITALValerie
== END 2017-12-19 15:25 | disposition home or self-care (01) ==
LOC: OREAST 09:53
PROVIDERS: ATTEND Orthopaedic Surgery Hand Surgery
DX: M65.842 Other synovitis and tenosynovitis, left hand (principal); M85.842 Other specified disorders of bone density and structure, left hand; R22.32 Localized swelling, mass and lump, left upper limb; I10 Essential (primary) hypertension; F32.9 Major depressive disorder, single episode, unspecified; Z88.2 Allergy status to sulfonamides; Z91.041 Radiographic dye allergy status; Z87.891 Personal history of nicotine dependence
CPT/HCPCS: 88304; 88305; J0360; J0690; J1100; J1240; J1885; J2250; J2704; J3010

== ENCOUNTER 2018-06-05 16:49 | Emergency (ER) | payer BC ==
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
[2018-06-05] MEDS ORDERED: NS 0.9% 1000 ML* 1,000 ML IV ONE (21:37)
[2018-06-05] MEDS ORDERED: Meclizine TAB* 12.5 MG PO ONE (21:37)
[2018-06-05] MEDS ORDERED: Ondansetron INJ* 2 MG/ML VIAL IV ONE (21:37)
[2018-06-05 22:28] LABS: ABS Basophils 0 10^3/ul (0-0.2); ABS Eosinophils 0.1 10^3/ul (0-0.6); ABS Lymphocytes 2.1 10^3/ul (1.0-4.8); ABS Monocytes 0.3 10^3/ul (0-0.8); ABS Neutrophils 3.8 10^3/ul (1.5-7.7); ABS Nucleated RBC 0 10^3/ul; Eosinophil % 1.6 %; Hematocrit 35 % (35-47); Mean Corpuscular HGB Conc 34 g/dl (31-36); Mean Corpuscular Hemoglobin 28 pg (27-31); Mean Corpuscular Volume 83 fL (80-97); Mean Platelet Volume 7.2 fL (7.4-10.4); Nucleated Red Blood Cells % 0; Platelet Count 276 10^3/ul (150-450); Red Blood Count 4.23 10^6/ul (4.00-5.40); Red Cell Distribution Width 13 % (10.5-15); White Blood Count 6.4 10^3/ul (3.5-10.8)
[2018-06-05 22:29] LABS: INR 0.92 (0.77-1.02)
[2018-06-05 22:43] LABS: EGFR Non-African American 86.5 (>60)
[2018-06-05 23:15] LABS: Urine Appearance Cloudy; Urine Blood Negative (Negative); Urine Color Yellow; Urine Ketones Negative (Negative); Urine Protein Negative (Negative); Urine Specific Gravity 1.021 (1.010-1.030); Urine Urobilinogen Negative (Negative)
[2018-06-05 23:43] VITALS: BP 127/77
== END 2018-06-05 23:42 | disposition home or self-care (01) ==
LOC: ED 16:49
DX: R42 Dizziness and giddiness (principal); R20.0 Anesthesia of skin; R11.0 Nausea; J45.909 Unspecified asthma, uncomplicated; Z88.2 Allergy status to sulfonamides; Z91.041 Radiographic dye allergy status; Z87.891 Personal history of nicotine dependence
CPT/HCPCS: 36415; 70450; 80053; 81003; 83735; 84702; 85025; 85610; 85730; 96374; 99282; A9270-GY; J2405

== ENCOUNTER 2018-09-23 07:03 | Day surgery (SDC) | payer BC ==
--- NOTE | 2018-09-12 07:02 | HP ---
HISTORY AND PHYSICAL: DATE OF ADMISSION/SURGERY: 09/23/18 DATE OF OFFICE VISIT: 09/11/18 SURGEON: Jocy Acosta MD * (DICTATED BY MANDO MORROW) PROCEDURE: Right elbow ulnar nerve decompression and medial release. CHIEF COMPLAINT: Right elbow pain. HISTORY OF PRESENT ILLNESS: Ms. Acosta is a 43-year-old female with continued complaints of right elbow pain with continued numbness and tingling. She has failed conservative treatment and elected to proceed with surgery. PAST MEDICAL HISTORY: 1. Sleep apnea. 2. GERD. 3. Asthma. PAST SURGICAL HISTORY: 1. Gastric sleeve. 2. Laparoscopy. 3. Cholecystectomy. 4. D and C. 5. . 6. Knee scope. 7. Shoulder scope. 8. Tonsillectomy. 9. Left wrist ganglion cyst excision. 10. ORIF of the right wrist. CURRENT MEDICATIONS: 1. Xyzal 5 mg a day. 2. Lamotrigine 100 mg a day. 3. Metoprolol 25 mg daily. 4. Sertraline. ALLERGIES: SULFA and CONTRAST DYE. FAMILY HISTORY: Diabetes and cancer. SOCIAL HISTORY: She is a 43-year-old female. She lives with her . She does not smoke, use drugs or alcohol. REVIEW OF SYSTEMS: A complete 14-point review of systems was reviewed with the patient. It was positive for GERD and a history of 2 superficial blood clots in her right arm. She denies history of hepatitis C, HIV, or anesthesia problems. PHYSICAL EXAMINATION GENERAL: She is well developed, well nourished, in no acute distress. VITAL SIGNS: She stands 67 inches tall, weighs 215 pounds. Her blood pressure is 137/70, her heart rate is 80. HEENT: Normocephalic, atraumatic. NECK: Supple. No palpable lymph nodes. PULMONARY: The lungs are clear to auscultation bilaterally. CARDIO: Regular rate and rhythm. Strong S1, S2. ABDOMEN: Soft, nontender, nondistended. NEUROLOGICAL: She is alert and oriented x3. MUSCULOSKELETAL: Right upper extremity: The skin is intact. There are no open wounds or abrasions. She has some tenderness along the right medial elbow and some numbness and tingling of the right fourth and fifth fingers. She has full range of motion of the right elbow and right wrist. She has 2+ palpable pulse. ASSESSMENT AND PLAN: Ms. Acosta is a 43-year-old female with continued complaints of right elbow pain and numbness and tingling in the ulnar nerve distribution. She has elected to proceed with a right elbow ulnar nerve decompression and medial release. The surgery is scheduled for 09/23/[address] Acosta discussed the risks and benefits of the surgery at today' s visit and all of her questions were answered. She will follow with Dr. Acosta 7 to 10 days after the surgery. MANDO MORROW [id number]/[facility] #: [id number] [place]
[~2018-09-23 07:03] MED LIST changes: -Buffered Lidocaine 0.9% SYRIN* 5 ML/SYR SYRINGE INTRADERM ONE; +Buffered Lidocaine 1% SYRIN* 1 ML/SYRINGE INTRADERM ONE; +Lactated Ringers 1000 ML Bag* 1,000 ML IV SCH
[2018-09-23] MEDS ORDERED: ceFAZolin 2 GM in NS PREMIX(*) 2 GM/100 ML BAG IVPB ONE (07:20)
[2018-09-23] MEDS ORDERED: Naloxone* 0.4 MG/ML 1 ML VIAL IV PRN (08:00)
[2018-09-23] MEDS ORDERED: HYDROcodone/ACETAMIN 5-325 MG* 1 TAB PO PRN (08:00)
[2018-09-23] MEDS ORDERED: DiMENhydriNATE IV* 50 MG/ML VIAL IV PUSH PRN (08:00)
[2018-09-23] MEDS ORDERED: fentaNYL* 50 MCG/ML 2 ML VIAL (100 MCG VIAL) ONE ×2 (08:12→10:43)
[2018-09-23] MEDS ORDERED: Propofol* 10 MG/ML 20 ML BTL ONE (08:12)
[2018-09-23] MEDS ORDERED: Midazolam* 1 MG/ML 5 ML VIAL (5 MG) ONE (08:12)
[2018-09-23] MEDS ORDERED: Lidocaine 2% PF * 5 ML VIAL ONE (08:12)
[2018-09-23] MEDS ORDERED: Bupivacaine 0.5% SDV PF* 30ML VIAL ONE (09:02)
[2018-09-23] MEDS ORDERED: Ondansetron INJ* 2 MG/ML VIAL ONE (09:44)
[2018-09-23] MEDS ORDERED: oxyCODONE/Acetamin 5/325 MG* TAB ONE (10:34)
[2018-09-23] MEDS: oxyCODONE/Acetamin 5/325 MG* TAB PO PRN ×2 (10:37→10:38)
[2018-09-23] MEDS: fentaNYL* 50 MCG/ML 2 ML VIAL (100 MCG VIAL) IV PRN ×2 (10:47→10:58)
[2018-09-23 13:57] VITALS: BP 139/79
--- NOTE | 2018-09-23 14:29 | OP ---
CC: Jocy Acosta MD* OPERATIVE REPORT: DATE OF OPERATION: 09/23/18 - [facility] DATE OF : 79 SURGEON: Jocy Acosta MD DIRECTOR IT PROJECT: MANDO Adames ANESTHESIOLOGIST: Juan J Gotti MD ANESTHESIA: General. PRE-OP DIAGNOSES: Right ulnar nerve compression at the elbow and right medial epicondylitis. POST-OP DIAGNOSES: Right ulnar nerve compression at the elbow and right medial epicondylitis. OPERATIVE PROCEDURE: Right ulnar nerve decompression and medial elbow release. ESTIMATED BLOOD LOSS: Zero. TOURNIQUET TIME: About 30 minutes. INDICATIONS FOR PROCEDURE: Tabatha is a 43-year-old female with medial elbow pain as well as numbness and tingling in the median nerve distribution of her right hand. She presents for right ulnar nerve decompression and medial elbow release. DESCRIPTION OF PROCEDURE: The patient was brought to the operative room and was given a general anesthetic and placed in the supine position on the operating table with a tourniquet around her right upper arm. Skin of her right upper extremity was prepped and draped in the usual sterile fashion. The hand and forearm were exsanguinated and the tourniquet elevated to 250 mmHg. A curvilinear incision was made, centered between the medial epicondyle and the tip of the olecranon process. We dissected through the subcutaneous tissue down to the ulnar nerve proximal to the elbow joint. The nerve was carefully dissected proximally and distally, proximally for several centimeters and through the cubital tunnel at the elbow joint. The Ramirez's ligament was released and then the nerve was released through the FCU muscle releasing both the superficial and deep portion of the FCU fascia. The nerve was in good condition. There was an area of maximum compression at the cubital tunnel. Next, the flexor pronator origin was released with a distally based U-shaped flap and allowed to retract distally. There was minimal amount of underlying degenerative tendon tissue and this was debrided. Deep tendon was then repaired back to itself in a shortened fashion with #1 Vicryl suture. The wound was irrigated. Subcutaneous tissue was closed with 3-0 Polysorb and the skin with skin daniel. The wound was dressed with Xeroform, 4x4, Webril, and an Wili wrap. The patient tolerated the procedure well and was brought to the recovery room in good condition. [id number]/[facility] #: [id number] [facility]
--- NOTE | 2018-09-24 12:04 | PN ---
Progress Note - Progress Note Date of Service: 09/24/18 - Anesthesia Note Note: Patient is status post general anesthetic with LMA. Uneventful insertion and extubation. In PACU patient states some tip of tongue discomfort that was still present at discharge. Upon follow up today patient still complains of distal tongue tip with some numbness and discomfort. Patient states no obvious visual abnormaility and no difficulty with swallowing or phonation. I anticipate spontaneous resolution of this over time and told her so. Also encouraged to avoid very hot or cold liquids until better. She will follow up with PMD if symptoms worsen or don't improve. All questions answered to best of ability. Cherrie Gotti M.D.
== END 2018-09-23 12:04 | disposition home or self-care (01) ==
LOC: OREAST 07:03
PROVIDERS: ATTEND Orthopaedic Surgery
DX: G56.21 Lesion of ulnar nerve, right upper limb (principal); M77.01 Medial epicondylitis, right elbow; I10 Essential (primary) hypertension; J45.909 Unspecified asthma, uncomplicated; F41.8 Other specified anxiety disorders; G47.33 Obstructive sleep apnea (adult) (pediatric)
CPT/HCPCS: A9270-GY; J0690; J1100; J2250; J2405; J2704; J3010

== ENCOUNTER 2018-12-21 18:31 | Emergency (ER) | payer BC ==
[2018-12-21 18:57] VITALS: BP 112/75
--- NOTE | 2018-12-21 20:14 | UC ---
General HPI - HPI Summary HPI Summary: PATIENT PRESENTS WITH 2 DAYS OF WORSENING SWELLING IN HER ANKLES AND FEET, L> R. REPORTS A HISTORY OF A VENTRICULAR FILLING DEFECT BUT DENIES ANY SHORTNESS OF BREATH OR DISTINCT CHEST PAIN. STATES SHE HAS A "FUNNY" FEELING IN HER CHEST SIMILAR TO A MUSCLE STRAIN. HAD SOME HIGH BLOOD PRESSURE READINGS TODAY IN THE SYSTOLIC 160S. - History of Current Complaint Chief Complaint: UCGeneralIllness Stated Complaint: SWOLLEN FEET Time Seen by Provider: 12/21/18 19:09 Hx Obtained From: Patient Hx Last Menstrual Period: 12/15/2018 Onset/Duration: Lasting Days, Still Present Timing: Constant Onset Severity: Moderate Current Severity: Moderate Pain Intensity: 5 - Allergy/Home Medications Allergies/Adverse Reactions: Allergies Allergy/AdvReac Type Severity Reaction Status Date / Time Iodinated Contrast- Oral and Allergy Intermediate Hives Verified 12/21/18 18:43 IV Dye Sulfa (Sulfonamide Allergy Intermediate Hives Verified 12/21/18 18:43 Antibiotics) ENVIRONMENTAL/SEASONAL Allergy Intermediate runny nose Uncoded 12/21/18 18:43 HAYFEVER stuffiness PMH/Surg Hx/FS Hx/Imm Hx Cardiovascular History: Cardiac Disease - VENTRICULAR FILLING DEFECT, Hypertension Respiratory History: Asthma - Surgical History Surgical History: Yes Surgery Procedure, Year, and Place: GASTRIC SLEEVE - 12/27/2015. LEFT WRIST PINS{PINS REMOVED} 1997 AND 2013 -. LEFT WRIST cyst X's 3 - BONE SPURS REMOVED x2. LAPAROSCOPY 1998. TENDON RELEASE RIGHT WRIST 2000, 2012. GALLBLADDER REMOVED 2001. Tubal ligation. TONSILS 2006. LEFT KNEE ARTHROSCOPIC 2003. 2007. 2012-LEFT SHOULDER LABRAL REPAIR. 2010- LEFT RING FINGER- APONTE LAPAROSCOPY , MOST RECENT YEARS AGO- [place]. CYSTS REMOVED NECK,R WRIST,GROIN. 2010 CYST REMOVED FROM RIGHT JAW AREA. 1998- LAPAROSCOPY - EXPLORATORY. 2000-RIGHT WRIST TENDONITIS. 2000 HEMORRHOID BANDING THEN A MONTH -CAUTERIZATION OF HEMORRHOIDS. 2013-BRONCHOSCOPY. SURGERY FOR KIDNEY STONE BLASTING. 11/2017-LEFT WRIST REMOVED TENDONS. 2013 LEFT KNEE REPAIR NO METAL. R elbow surgery September 18, 2018 - Family History Known Family History: Positive: Cardiac Disease, Hypertension Family History: Father has heart disease and mother has hypertension - Social History Alcohol Use: None Substance Use Type: None Substance Use Comment - Amount & Last Used: cbd oil Smoking Status (MU): Former Smoker Type: Cigarettes Amount Used/How Often: 1/2-1 PPD X 21 YEARS Length of Time of Smoking/Using Tobacco: 21 YEARS Have You Smoked in the Last Year: No When Did the Patient Quit Smoking/Using Tobacco: 2013 Household Exposure Type: Cigarettes - Immunization History Most Recent Influenza Vaccination: never Most Recent Tetanus Shot: [place] Most Recent Pneumonia Vaccination: never Review of Systems All Other Systems Reviewed And Are Negative: Yes Constitutional: Positive: Negative Skin: Positive: Negative Respiratory: Positive: Negative Cardiovascular: Positive: Chest Pain Gastrointestinal: Positive: Negative Musculoskeletal: Positive: Edema Physical Exam Triage Information Reviewed: Yes Appearance: Well-Appearing, No Pain Distress, Well-Nourished Vital Signs: Initial Vital Signs Temp 97.5 F 12/21/18 18:44 Pulse 64 12/21/18 18:44 Resp 18 12/21/18 18:44 BP 112/75 12/21/18 18:44 Pulse Ox 99 12/21/18 18:44 Vital Signs Reviewed: Yes Eyes: Positive: Conjunctiva Clear ENT: Positive: Hearing grossly normal Neck: Positive: Supple Respiratory Exam: Normal Cardiovascular Exam: Normal Abdomen Description: Positive: Soft Musculoskeletal: Positive: ROM Intact, Edema @ - BILATERAL 2+ NON PITTING EDEMA ANKLES/FEET, Other: - NO CALF TENDERNESS Neurological: Positive: Alert Psychological: Positive: Age Appropriate Behavior Skin: Negative: Rashes Diagnostics - EKG Cardiac Rate: Bradycardia - 57BPM Cardiac Rhythm: Sinus: Normal Ectopy: None ST Segment: Normal Course/Dx - Course Course Of Treatment: PATIENT REPORTS HISTORY OF A VENTRICULAR FILLING DEFECT AND PRESENTS WITH A FEELING OF OVERALL SWELLING FOR THE PAST COUPLE OF WEEKS AND ABOUT 2 DAYS OF DISTINCT ANKLE AND FOOT EDEMA. NO SHORTNESS OF BREATH BUT DOES COMPLAIN OF A FUNNY FEELING IN HER CHEST SIMILAR TO A MUSCLE STRAIN. EKG SHOWS SINUS RHYTHM AT 57 BPM. I FEEL SHE REQUIRES A HIGHER LEVEL OF CARE THAN WHAT IS AVAILABLE IN THE UC AND HAVE RECOMMENDED SHE GO TO THE ER FOR FURTHER EVALUATION. PT OFFERED TRANSPORT TO THE ED BY AMBULANCE BUT DECLINES. ADVISED THAT BY NOT TRAVELING IN A MONITORED SETTING SHE COULD BE RISKING WORSENING OF HER CONDITION THAT COULD POSE A THREAT TO HER LIFE, HEALTH AND MEDICAL SAFETY. SHE VERBALIZES UNDERSTANDING AND CONTINUES TO DECLINE AMBULANCE TRANSFER. - Diagnoses Provider Diagnosis: Lower extremity edema Discharge - Sign-Out/Discharge Documenting (check all that apply): Patient Departure All imaging exams completed and their final reports reviewed: No Studies - Discharge Plan Condition: Stable Disposition: TRANS HIGHER LVL OF CARE FAC Patient Education Materials: Leg Edema (ED) Referrals: Dayo Westbrook MD [Primary Care Provider] - If Needed Additional Instructions: UNCLEAR ETIOLOGY OF YOUR CONSTELLATION OF SYMPTOMS. GIVEN YOUR SIGNIFICANT LOWER EXTREMITY EDEMA AND YOUR HISTORY OF a VENTRICULAR FILLING DEFECT I BELIEVE YOU REQUIRE MORE RESOURCES THAN WHAT IS AVAILABLE IN THE URGENT CARE. GO DIRECTLY TO THE [facility] FROM HERE FOR FURTHER EVALUATION. YOU HAVE DECLINED TRANSFER TO THE ED BY AMBULANCE. BE ADVISED THAT BY NOT TRAVELING IN A MONITORED SETTING YOU COULD BE RISKING WORSENING OF YOUR CONDITION THAT COULD POSE A THREAT TO YOUR LIFE, HEALTH AND MEDICAL SAFETY. - Billing Disposition and Condition Condition: STABLE Disposition: Trans Higher Lvl of Care Fac
== END 2018-12-21 20:15 | disposition short-term general hospital (02) ==
LOC: UCEAST 18:31
DX: R60.9 Edema, unspecified (principal); I10 Essential (primary) hypertension; Z88.2 Allergy status to sulfonamides; Z98.84 Bariatric surgery status; Z87.891 Personal history of nicotine dependence
CPT/HCPCS: 93005; 99212; G0463

== ENCOUNTER 2018-12-21 20:33 | Emergency (ER) | payer BC ==
[2018-12-21] MEDS ORDERED: Nitro 2% OINT* (Nitroglycerin) 1 INCH/PAK PAK TOPICAL ONE (22:43)
[2018-12-21 23:03] LABS: ABS Eosinophils 0.2 10^3/ul (0-0.6); ABS Lymphocytes 2.1 10^3/ul (1.0-4.8); ABS Monocytes 0.4 10^3/ul (0-0.8); Eosinophil % 2.8 %; Hematocrit 32 % (35-47); Hemoglobin 11.1 g/dL (12.0-16.0); Lymphocyte % 31.8 %; Mean Corpuscular HGB Conc 35 g/dL (31-36); Mean Corpuscular Hemoglobin 29 pg (27-31); Mean Corpuscular Volume 82 fL (80-97); Mean Platelet Volume 7.3 fL (7.4-10.4); Platelet Count 293 10^3/uL (150-450); Red Blood Count 3.89 10^6 /uL (3.70-4.87); Red Cell Distribution Width 14 % (10-15); White Blood Count 6.7 10^3/uL (3.5-10.8)
[2018-12-21 23:07] LABS: Urine Appearance Cloudy; Urine Bacteria 1+ (Absent); Urine Bilirubin Negative (Negative); Urine Blood 1+ (Negative); Urine Color Yellow; Urine Glucose Negative (Negative); Urine Ketones Negative (Negative); Urine Nitrite Negative (Negative); Urine Protein Negative (Negative); Urine Red Blood Cell Trace(0-2/hpf) (Absent); Urine Specific Gravity 1.026 (1.010-1.030); Urine Squamous Epithelial Cell Present (Absent); Urine Urobilinogen Negative (Negative); Urine White Blood Cell 1+(6-10/hpf) (Absent)
[2018-12-21 23:12] LABS: Activated Partial Thrombo Time 32.8 seconds (26.0-38.0); INR 0.95 (0.82-1.09)
[2018-12-21 23:19] LABS: Albumin 4.2 g/dL (3.2-5.2); Albumin/Globulin Ratio 1.7 (1-3); BUN/Creatinine Ratio 18.2 (8-20); EGFR Non-African American 82.6 (>60); Globulin 2.5 g/dL (2-4); Total Bilirubin 0.3 mg/dL (0.2-1.0); Total Protein 6.7 g/dL (6.4-8.9)
[2018-12-21 23:52] LABS: TSH (Thyroid Stimulating Horm) 3.54 mcIU/mL (0.34-5.60)
[2018-12-22 01:21] VITALS: BP 122/76
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
--- NOTE | 2018-12-25 06:19 | PN ---
Progress Note - Progress Note Date of Service: 12/25/18 Note: Patient's urine culture grew staph aureus and normal sandra 1- 10,000. This is not a significant culture so will not treat at this time as is likely contaminant.
== END 2018-12-22 01:20 | disposition home or self-care (01) ==
LOC: ED 20:33
DX: R60.0 Localized edema (principal); I10 Essential (primary) hypertension; Z91.041 Radiographic dye allergy status; Z79.899 Other long term (current) drug therapy; Z87.891 Personal history of nicotine dependence
CPT/HCPCS: 36415; 80053; 81003; 81015; 83880; 84443; 85025; 85610; 85730; 87077; 87086; 87186; 93005; 93970; 99283; A9270-GY

== ENCOUNTER 2019-03-06 18:01 | Emergency (ER) | payer BC ==
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
[2019-03-06 20:20] VITALS: BP 150/72
--- NOTE | 2019-03-07 09:03 | UC ---
- Progress Note Progress Note: wet read correct Course/Dx - Diagnoses Provider Diagnoses: Exacerbation of chronic back pain Discharge ED - Sign-Out/Discharge Documenting (check all that apply): Post-Discharge Follow Up All imaging exams completed and their final reports reviewed: Yes - Discharge Plan Condition: Stable Disposition: HOME Prescriptions: Cyclobenzaprine TAB* [Flexeril TAB*] 10 mg PO BID PRN #30 tab PRN Reason: Pain HYDROcodone/ACETAMIN 5-325 MG* [[place] 5-325 TAB*] 1 tab PO Q6H PRN #20 tab MDD 4 PRN Reason: Pain Ibuprofen TAB* [Motrin TAB* 800 MG] 800 mg PO Q8H PRN #30 tab PRN Reason: Pain Patient Education Materials: Chronic Back Pain (DC) Forms: *Work Release Referrals: Dayo Westbrook MD [Primary Care Provider] - 1 Week Additional Instructions: X-RAYS OF YOUR CERVICAL AND THORACIC SPINE TODAY SHOW CHRONIC DEGENERATIVE CHANGE BUT DO NOT SHOW ANY ACUTE INJURY ON MY INITIAL INTERPRETATION. WE WILL CALL YOU IF THE RADIOLOGY READ DIFFERS. CONTINUE TO TAKE IBUPROFEN NEEDED FOR DISCOMFORT. USE THE HYDROCODONE FOR BREAKTHROUGH PAIN. MUSCLE RELAXER BEFORE BED. FOLLOW-UP WITH YOUR PAIN MANAGEMENT PROVIDER OR YOUR PCP NEXT WEEK FOR REEVALUATION. GIVEN THE CHRONIC NATURE OF YOUR DISCOMFORT YOU MAY BENEFIT FROM MORE ADVANCED IMAGING SUCH AN MRI AND/OR PHYSICAL THERAPY. CONSIDER EVALUATION AT THE SPINE CENTER IN [place]. GO TO THE ER WITHOUT FAIL IF YOU DEVELOP NUMBNESS, WEAKNESS, INTOLERABLE PAIN OR ANY OTHER CONCERNING SYMPTOMS. [facility] [address] [place], [place] [id number] - Billing Disposition and Condition Condition: STABLE Disposition: Home
== END 2019-03-06 20:20 | disposition home or self-care (01) ==
LOC: UCEAST 18:01
DX: G89.29 Other chronic pain (principal); M54.89 Other dorsalgia; I10 Essential (primary) hypertension; J45.909 Unspecified asthma, uncomplicated; Z88.2 Allergy status to sulfonamides; Z87.891 Personal history of nicotine dependence
CPT/HCPCS: 72040; 72070; 99212; G0463

== ENCOUNTER 2019-04-07 20:01 | Emergency (ER) | payer BC ==
[2019-04-07 20:18] VITALS: BP 140/84
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
--- NOTE | 2019-04-08 07:27 | UC ---
- Progress Note Progress Note: Confirmed wet read in agreement with Dr. Mendoza's reading of NO acute intrapulmonary disease. No change in plan needed based on this report. Course/Dx - Diagnoses Provider Diagnoses: Dysuria, Cough Discharge ED - Sign-Out/Discharge Documenting (check all that apply): Patient Departure All imaging exams completed and their final reports reviewed: Yes - Discharge Plan Condition: Good Disposition: HOME Patient Education Materials: Dysuria (ED) Referrals: Dayo Westbrook MD [Primary Care Provider] - Additional Instructions: Increase fluids. We will call you if the radiologist feels there is a different reading of the chest x-ray. Follow-up with your primary care provider later this week if you continue to have low-grade fever and productive cough. We will call you with the urine culture results if they show an infection. - Billing Disposition and Condition Condition: GOOD Disposition: Home
== END 2019-04-07 21:20 | disposition home or self-care (01) ==
LOC: UCEAST 20:01
DX: R05 Cough (principal); R30.0 Dysuria; I10 Essential (primary) hypertension; Z87.440 Personal history of urinary (tract) infections; Z90.710 Acquired absence of both cervix and uterus; Z91.040 Latex allergy status; Z88.2 Allergy status to sulfonamides; Z91.09 Other allergy status, other than to drugs and biological substances; Z87.891 Personal history of nicotine dependence
CPT/HCPCS: 71046; 81003; 87086; 99212; G0463

== ENCOUNTER 2019-05-14 20:05 | Emergency (ER) | payer BC ==
[2019-05-14 21:00] VITALS: BP 163/88
[2019-05-14] MEDS ORDERED: Acetaminophen TAB* 325 MG PO ONE (21:00)
[2019-05-14] MEDS ORDERED: Ibuprofen TAB* 600 MG PO ONE (21:00)
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
[2019-05-14] MEDS ORDERED: Cephalexin CAP* 500 MG PO ONE (21:50)
--- NOTE | 2019-05-15 09:05 | UC ---
- Progress Note Progress Note: RADIOLOGY REPORT REVIEWED. NO EVIDENCE FOR FRACTURE. NO CHANGE IN MANAGEMENT. Course/Dx - Diagnoses Provider Diagnoses: UTI (urinary tract infection), Hip pain, right, Contusion of rib on right side Discharge ED - Sign-Out/Discharge Documenting (check all that apply): Post-Discharge Follow Up All imaging exams completed and their final reports reviewed: Yes - Discharge Plan Condition: Fair Disposition: HOME Prescriptions: Cephalexin CAP* [Keflex 500 CAP*] 500 mg PO TID 10 Days #29 cap Patient Education Materials: Urinary Tract Infection in Women (DC), Rib Contusion (ED) Forms: *Work Release Referrals: Dayo Westbrook MD [Primary Care Provider] - Additional Instructions: Increase fluids, fill your prescription for the cephalexin tomorrow for the urinary tract infection. Apply ice to the sore areas intermittently over the next day or 2. Take Tylenol every 4 hours and Motrin every 8 hours for pain. Definite follow-up with your primary care provider if no improvement in 3 or 4 days. We will call you tomorrow if there is any change on the x-rays. - Billing Disposition and Condition Condition: FAIR Disposition: Home
--- NOTE | 2019-05-17 15:57 | UC ---
- Progress Note Progress Note: + E coli bernal sensitive pt on cephalexin no change laila 05/17/19 Course/Dx - Diagnoses Provider Diagnoses: UTI (urinary tract infection), Hip pain, right, Contusion of rib on right side Discharge ED - Sign-Out/Discharge Documenting (check all that apply): Post-Discharge Follow Up All imaging exams completed and their final reports reviewed: Yes - Discharge Plan Condition: Fair Disposition: HOME Prescriptions: Cephalexin CAP* [Keflex 500 CAP*] 500 mg PO TID 10 Days #29 cap Patient Education Materials: Urinary Tract Infection in Women (DC), Rib Contusion (ED) Forms: *Work Release Referrals: Dayo Westbrook MD [Primary Care Provider] - Additional Instructions: Increase fluids, fill your prescription for the cephalexin tomorrow for the urinary tract infection. Apply ice to the sore areas intermittently over the next day or 2. Take Tylenol every 4 hours and Motrin every 8 hours for pain. Definite follow-up with your primary care provider if no improvement in 3 or 4 days. We will call you tomorrow if there is any change on the x-rays. - Billing Disposition and Condition Condition: FAIR Disposition: Home
== END 2019-05-14 22:12 | disposition home or self-care (01) ==
LOC: UCEAST 20:05
DX: S20.211A Contusion of right front wall of thorax, initial encounter (principal); M25.551 Pain in right hip; N39.0 Urinary tract infection, site not specified; Z87.891 Personal history of nicotine dependence; Z91.041 Radiographic dye allergy status; Z88.2 Allergy status to sulfonamides; Z91.09 Other allergy status, other than to drugs and biological substances; W00.9XXA Unspecified fall due to ice and snow, initial encounter; Y92.9 Unspecified place or not applicable
CPT/HCPCS: 72170; 81003; 87077; 87086; 87186; 99212; A9270-GY; G0463

== ENCOUNTER 2019-06-04 20:29 | Emergency (ER) | payer BC ==
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
[2019-06-04] MEDS ORDERED: Ketorolac *IM* INJ* 60 MG/2 ML VIAL IM ONE (21:43)
[2019-06-04] MEDS ORDERED: Cyclobenzaprine TAB* 10 MG PO ONE (22:11)
[2019-06-05 00:11] VITALS: BP 154/96
== END 2019-06-05 | disposition home or self-care (01) ==
LOC: ED 20:29
DX: M54.6 Pain in thoracic spine (principal); R07.81 Pleurodynia; I10 Essential (primary) hypertension; F41.9 Anxiety disorder, unspecified; F32.9 Major depressive disorder, single episode, unspecified; Z88.2 Allergy status to sulfonamides; Z91.041 Radiographic dye allergy status; Z87.891 Personal history of nicotine dependence
CPT/HCPCS: 71110; 96372; 99282; A9270-GY; J1885